=== PATIENT | female | born 1985 | race Caucasian/White ===

== ENCOUNTER 2019-02-28 00:25 | Inpatient (IN) ==
[2019-02-28] MEDS ORDERED: OXYTOCIN 30 UNITS/500 ML BAG IV PRN ×3 (01:06→06:29)
[2019-02-28 01:25] LABS: Hematocrit (blood only) 39.5 % (37-47); Hemoglobin 14.3 g/dL (12.0-16.0); Mean Corpuscular Hemoglobin 32.5 pg (25-34); Mean Corpuscular Hgb Conc 36.2 g/dL (32-36); Mean Corpuscular Volume 89.8 fL (80-100); Mean Platelet Volume 9.2 fL (7.4-10.4); Platelet Count 249 K/uL (130-400); RDW Coefficient of Variation 12.7 % (11.5-14.5); RDW Standard Deviation 41.7 fL (36.4-46.3); White Blood Count 11.54 K/uL (4.8-10.8)
--- NOTE | 2019-02-28 01:53 | History & Physical Report ---
Date of Service February 28, 2019 Assessment & Plan (1) with 39 completed weeks gestation: admit, expectant mangement, epidural on demand, arom or pit if indicated. fetus category one. anticipate . (2) Diet controlled gestational diabetes mellitus (GDM), antepartum: BS q 3 hrs, monitor. History of Present Illness Chief Complaint: contractions Primary Care Provider: NO PCP Patient is a with iup at 39 1/7 weeks who presents complaining of contractions . Was checked yesterday and 3cm. notes no vb/lof. complicated by gdm, diet controlled. Thickened nuchal fold on ultrasound, had MFM consult and declined amnio. labs--O+/ab-/pap nl/ri/rprnr/hepb-/hiv-/gc/ct-/ 16 week gtt 206, panorama low risk/gbs neg Allergies Allergy/AdvReac Type Severity Reaction Status Date / Time codeine Allergy Unknown depression Verified 02/27/19 12:17 Home Medications Home Medications Medication Instructions Recorded Confirmed Type Microlet lancets #50 ea 12/06/18 02/28/19 History blood sugar diagnostic strips #10 ea 12/06/18 02/28/19 History PNV cmb#95-ferrous fumarate-FA 1 tab PO DAILY 02/28/19 02/28/19 History [] Patient History Medical History History of bladder infections History of chicken pox History of wrist fracture age 8 Mass of vulva Surgical History S/P wisdom tooth extraction Family History Grandfather (Maternal) Cardiac disorder Myocardial infarction Grandmother (Paternal) Osteoporosis Grandfather (Paternal) Multiple gestation Myocardial infarction Aunt Multiple gestation maternal Social History Preferred Language: Welsh Communication Ability: Effective Beliefs That Will Affect Care: None marital status: Current Living Situation: Spouse Current Living Situation Comment: spouse and children current occupation: homemaker Other Information That Helps Us Care for You: No Feels Safe at Home: Yes Safety Concerns: Feels Safe At This Time Smoking Status: Never smoker Hx Alcohol Use: No Hx Substance Use: No OB History g1--12/13, 40 weeks, , 7#7oz, vavd, OP with episiotomy, baby in nicu for 3 hours. G2--09/14, 39 weeks, , 7# 13oz, [employer] History no std, no abnl paps Review of Systems All systems reviewed & are unremarkable except as noted in HPI & below Physical Exam Constitutional: WD/WN, vitals as above Gastrointestinal (Abdomen): soft, gravid, nt Psychiatric: A+Ox3, euthymic affect Genitourinary: cx--5/50/-2 toco--q3-6min efm--135 with mod variability, +accels , no decels. Results & Data Vital Signs (Past 12 Hours) Vital Signs Temp Pulse Resp BP 02/28/19 00:42 36.7 C 73 18 114/69 02/28/19 00:41 36.7 C 73 18 114/69 Code Status & VTE Plan VTE Prophylaxis Plan VTE Prophylaxis will be ordered: No
[2019-02-28] MEDS: LACTATED RINGER'S 1,000 ML IV PRN ×2 (02:00→03:50)
[2019-02-28] MEDS ORDERED: fentaNYL 2MCG/ML ROPIV 1.25MG/ML 100 ML BAG EPI ONE (02:04)
[2019-02-28] MEDS ORDERED: BUPIVACAINE 0.25% 30 ML VIAL ONE (02:04)
[2019-02-28] MEDS ORDERED: fentaNYL citrate 100 MCG/2 ML VIAL ONE (02:04)
[2019-02-28] MEDS ORDERED: ePHEDrine sulfate 50 MG/ML AMP ONE (02:04)
[2019-02-28] MEDS ORDERED: NALOXONE HCL 0.4 MG/1 ML VIAL/CARP IV PRN (02:19)
[2019-02-28] MEDS ORDERED: NALBUPHINE HCL INJ 10 MG/ML AMP IV PRN (02:19)
[2019-02-28] MEDS ORDERED: ePHEDrine sulfate 50 MG/ML AMP IV PRN (02:19)
[2019-02-28] MEDS ORDERED: fentaNYL 2MCG/ML ROPIV 1.25MG/ML 100 ML BAG EPI PRN (02:19)
[2019-02-28] MEDS ORDERED: DiphenhydrAMINE HCL 50 MG/ML VIAL IV PRN (02:19)
[2019-02-28] MEDS ORDERED: ONDANSETRON INJ 2 MG/ML 2 ML VIAL IV PRN (02:19)
[2019-02-28] MEDS ORDERED: NALOXONE HCL 1 MG in SODIUM CHLORIDE 0.9% 1000ML 1,000 ML IV PRN (02:19)
--- NOTE | 2019-02-28 02:23 | Anesthesiology Consultation ---
Date of Service February 28, 2019 Assessment & Plan Chart Review Chart Review: Patient NOT seen in Pre Admission Testing and Acceptable Risk for Labor Epidural Consults Requested none ASA ASA2 Proposed Anesthesia Anesthesia Type: Labor Epidural and CSE Risk / Benefits Reviewed With: PT / POA / Parent / Guardian, Accepts Plan and Informed Consent Obtained History Height/Weight Height: 5 ft 2 in Weight: 64.41 kg Allergies Allergy/AdvReac Type Severity Reaction Status Date / Time codeine Allergy Unknown depression Verified 02/27/19 12:17 Medications Home Medications Medication Instructions Recorded Confirmed Last Taken Microlet lancets #50 ea 12/06/18 02/28/19 Unknown blood sugar diagnostic strips #10 ea 12/06/18 02/28/19 Unknown PNV cmb#95-ferrous fumarate-FA 1 tab PO DAILY 02/28/19 02/28/19 02/27/19 [] Active Medications Generic Name Dose Route Start Last Admin Trade Name Freq PRN Reason Stop Dose Admin Lactated Ringer's 1,000 mls @ 125 mls/hr 02/28/19 01:06 02/28/19 02:00 Lr IV 03/02/19 01:05 999 mls/hr .Q8H PRN Administration L&D Protocol Protocol NPO Date Last Intake of Fluids: 02/28/19 Time Last Intake of Fluids: 02:00 Date Last Intake of Solids: 02/28/19 Time Last Intake of Solids: 00:30 Past Medical History Medical History History of bladder infections History of chicken pox History of wrist fracture age 8 Mass of vulva Exercise / Class Metabolic Activity II 4-5 Yardwork/Stairs/Walk up hill Past Family History Family History Grandfather (Maternal) Cardiac disorder Myocardial infarction Grandmother (Paternal) Osteoporosis Grandfather (Paternal) Multiple gestation Myocardial infarction Aunt Multiple gestation maternal Past Surgical History Surgical History S/P wisdom tooth extraction Past Anesthesia History No Hx of Anesthesia Complications and No Family Hx of Anesthesia Complications History of PONV No Hx of PONV and No Hx of Motion Sickness Social History Smoking Status: Never smoker Hx Alcohol Use: No Hx Substance Use: No substance use type: does not use Review of Systems no chest pain or sob Physical Exam Vital Signs Last Vital Signs Temp 36.7 C 02/28/19 00:42 Pulse 77 02/28/19 02:20 Resp 18 02/28/19 00:42 BP 114/69 02/28/19 00:42 Pulse Ox 99 02/28/19 02:20 ENMT Mouth: no TMJ abnormality Thyromental Distance: > or= 3.5 Finger Breadths Mallampati Class: II Neck normal visual inspection Respiratory normal respiratory effort Auscultation: lungs clear to auscultation bilaterally Cardiovascular Rate/Rhythm: regular rate and regular rhythm Musculoskeletal Spine: normal cervical ROM Neurologic moves all extremities Psychiatric Orientation: alert and oriented x 3 Testing Laboratory Results 02/28/19 01:14 02/28/19 01:48 POC Glucose 85
--- NOTE | 2019-02-28 04:10 | Labor Progress Brief Note ---
Date of Service February 28, 2019 Subjective comfortable Assessment & Plan (1) with 39 completed weeks gestation: arom, pit if needed, fetus category one. anticipate . Physical Exam Constitutional: WD/WN, vitals as above Psychiatric: A+Ox3, euthymic affect Genitourinary: cx--6-7/75/-2 arom--blood tinged toco--q5-8 efm--145 with mod variability, accels to 160s, no decels Results & Data Vital Signs (Past 12 Hours) Vital Signs Temp Pulse Resp BP Pulse Ox 02/28/19 04:05 91 H 99 02/28/19 04:00 78 97 02/28/19 03:55 87 98 02/28/19 03:50 87 97 02/28/19 03:47 91 H 118/57 L 02/28/19 03:45 76 98 02/28/19 03:42 74 100/60 02/28/19 03:40 74 97 02/28/19 03:37 62 100/56 L 02/28/19 03:35 75 95 02/28/19 03:31 73 99/56 L 02/28/19 03:30 71 96 02/28/19 03:28 71 97/58 L 02/28/19 03:25 77 97 02/28/19 03:22 64 99/58 L 02/28/19 03:20 82 96 02/28/19 03:18 73 102/56 L 02/28/19 03:15 72 97 02/28/19 03:12 87 108/58 L 02/28/19 03:10 81 99 02/28/19 03:07 75 107/64 02/28/19 03:05 85 99 02/28/19 03:02 81 109/70 02/28/19 03:00 82 99 02/28/19 02:56 85 109/67 02/28/19 02:55 84 99 02/28/19 02:52 90 117/58 L 02/28/19 02:50 86 99 02/28/19 02:46 92 H 110/62 02/28/19 02:45 83 100 02/28/19 02:44 87 111/65 02/28/19 02:42 81 106/62 02/28/19 02:40 94 H 150/65 H 100 02/28/19 02:38 100 H 119/69 02/28/19 02:36 81 115/68 02/28/19 02:35 85 100 02/28/19 02:30 83 100 02/28/19 02:25 81 100 02/28/19 02:20 77 99 02/28/19 00:42 36.7 C 73 18 114/69 02/28/19 00:41 36.7 C 73 18 114/69
[2019-02-28] MEDS ORDERED: ACETAMINOPHEN 325 MG TAB PO PRN (06:21)
[2019-02-28] MEDS ORDERED: OXYCODONE/ACETAMINOPHEN 5mg/325mg TAB PO PRN (06:21)
[2019-02-28] MEDS ORDERED: SUPERCREAM 0.870% 15 GM JAR EXT PRN (06:29)
[2019-02-28] MEDS ORDERED: DIPHTHERIA/TETANUS/PERTUSSIS 0.5 ML SYR/VIAL IM ONE (06:29)
[2019-02-28] MEDS ORDERED: BENZOCAINE 20% AER SPR 82.5 GM CAN EXT PRN (06:29)
[2019-02-28] MEDS ORDERED: HYDROCORTISONE ACETATE 25 MG SUPP PR PRN (06:29)
[2019-02-28] MEDS ORDERED: BISACODYL 10 MG SUPP PR PRN (06:29)
[2019-02-28] MEDS: PRENATAL VITAMIN 1 TAB PO SCH (08:55)
[2019-02-28] MEDS: DOCUSATE SODIUM 100 MG CAP PO SCH ×2 (08:55→19:45)
[2019-02-28] MEDS: IBUPROFEN 600 MG TAB PO PRN ×3 (08:55→22:35)
--- NOTE | 2019-02-28 09:31 | Anesthesia Procedure Note ---
Date of Service February 28, 2019 Anesthesia Post Epidural Note Vital Signs Vital Signs: Temp Pulse Resp BP Pulse Ox 36.9 C 76 20 100/64 96 02/28/19 08:38 02/28/19 08:38 02/28/19 08:38 02/28/19 08:38 02/28/19 08:38 Notes Mental Status: alert / awake / arousable and participated in evaluation Nausea / Vomiting: adequately controlled Pain: adequately controlled Airway Patency, RR, SpO2: stable & adequate BP & HR: stable & adequate Hydration State: stable & adequate Neuraxial Anesthesia: was administered and sensory block is resolving Anesthetic Complications: no major complications apparent and Pt Satisfied with anesthetic care Epidural: Removed without complications and With tip intact Notes: Epidural site clean, dry and intact. No signs of edema, erythema or bruising at insertion site. Pt instructed to request anesthesia if she has residual lower extremity numbness or if she develops lower extremity pain or weakness, back pain or headache.
[2019-03-01] MEDS: IBUPROFEN 600 MG TAB PO PRN ×2 (04:15→08:42)
--- NOTE | 2019-03-01 07:32 | Obstetrical Progress Note ---
Date of Service <Susie Sams MD - Last Filed: 03/01/19 07:32> March 01, 2019 Assessment & Plan <Susie Sams MD - Last Filed: 03/01/19 07:32> (1) Encounter for care and examination after delivery: 33 yo PPD 1 s/p , complicated by GDM controlled with diet. Doing very well this AM. Already ambulating, tolerating regular diet. No issues with urination. Passing gas. Patient eager to go home today. Okay to d/c from OB POV. Patient awaiting d/c of child. Day #:: 1 Subjective <Susie Sams MD - Last Filed: 03/01/19 07:32> Ambulation: ambulating normally Voiding: no voiding problems Passing Gas:: Yes Diet Tolerance:: regular diet Lochia:: Small Feeding Type:: breast feeding Current Pain Level(1-10): 0 Constitutional: + fatigue; no fever and no chills Respiratory: no cough and no dyspnea No shortness of breath Cardiovascular: + edema; no chest pain, no syncope and no calf pain Breast: no breast pain Gastrointestinal: + cramping; no abdominal pain, no nausea, no vomiting, no constipation and no diarrhea/loose stools Genitourinary (female): no dysuria and no difficulty urinating Neurologic: no headache(s) Physical Exam <Susie Sams MD - Last Filed: 03/01/19 07:32> Constitutional well developed and well nourished Respiratory normal respiratory effort; no respiratory distress, no labored breathing and no cough Auscultation: no crackles, no rales, no rhonchi and no wheezes Cardiovascular Rate/Rhythm: regular rate and regular rhythm Heart Sounds: no gallop, no murmur and no cardiac rub Extremities: no pedal edema Gastrointestinal (Abdomen) Inspection/Auscultation: + abdomen distended and normal bowel sounds Percussion/Palpation: abdomen soft; abdomen nontender and no guarding Genitourinary Uterus firm, palpable at umbilicus, no tenderness to palpation. Results & Data <Susie Sams MD - Last Filed: 03/01/19 07:32> Vital Signs (Past 12 Hours) Vital Signs Temp Pulse Resp BP Pulse Ox 03/01/19 04:10 36.4 C L 70 16 106/71 98 02/28/19 22:35 36.4 C L 66 16 101/64 97 02/28/19 19:40 36.4 C L 74 16 107/67 98 <Michelle Kohli MD - Last Filed: 03/01/19 07:32> Co-Signing Physician Notes I have reviewed the resident's note and examined the patient myself, and agree with the note above. Resident Activity Tracking <Susie Sams MD - Last Filed: 03/01/19 07:32> Resident Involvement: Resident Care Provided Care Provided: OB Delivery
[2019-03-01 07:58] LABS: Hemoglobin 13.2 g/dL (12.0-16.0)
[2019-03-01] MEDS: PRENATAL VITAMIN 1 TAB PO SCH (08:42)
[2019-03-01] MEDS: DOCUSATE SODIUM 100 MG CAP PO SCH (08:42)
[2019-03-01] MEDS ORDERED: BISACODYL 5 MG TABEC PO SCH (20:00)
--- NOTE | 2019-03-05 08:32 | Delivery Summary ---
Vaginal Delivery Summary Date of Service February 28, 2019 Vaginal Delivery Summary Pre-operative Diagnosis: at 39 weeks active labor Post-operative Diagnosis: same Procedure: epidural EBL: 250cc Anesthesia: epidural Procedure: The patient pushed for a couple of contractions to deliver a viable male . The nose and mouth were bulb suctioned on the perineum and the rest of the was then delivered without difficulty. The baby was vigorous. The nose and mouth were again bulb suctioned and the was placed in the maternal abdomen for drying and attention. Cord was clamped and cut at one minute of life. Cord blood and segment obtained. Placenta delivered spontaneous, intact with a three vessel cord. Cervix/sulci/rectum/perineum were intact. Hemostasis obtained with dilute pitocin and fundal massage. Apgars were 9/9. Mother and baby doing well at the end of the delivery.
== END 2019-03-01 16:45 | disposition home or self-care (01) | DRG 807 ==
LOC: OPB 00:25 → 4S1 00:30 → 4S2 08:28